=== PATIENT | female | born 1980 | race African-American/Black ===

== ENCOUNTER 2017-03-14 15:23 | Emergency (ER) | payer BC, OTHER ==
[~2017-03-14] VITALS: Ht 170.2 cm; Wt 81.7 kg
[2017-03-14 16:17] LABS: ABSOLUTE NEUTROPHILS 5.4 thou/uL (1.4-8.2); BASOPHILS 0.6 % (0.0-2.0); EOSINOPHILS 0.5 % (0.0-3.0); HEMATOCRIT 40.2 % (37.0-47.0); HEMOGLOBIN 13.6 gm/dL (12.0-15.0); LYMPHOCYTES 26.8 % (24.0-44.0); MANUAL DIFF NO; MCH 25.2 pg (26.0-34.0); MCHC 33.9 g/dL (28.0-37.0); MCV 74.4 fL (80.0-100.0); MONOCYTES 5.2 % (1.0-8.0); PLATELET COUNT 237 thou/uL (150-400); POLYS 66.9 % (36.0-66.0); RBC 5.41 mil/uL (4.20-5.00); RDW 14.5 % (10.5-14.5)
[2017-03-14 16:20] LABS: CALCIUM 8.7 mg/dL (8.5-10.1); CREATININE 1.1 mg/dL (0.6-1.0); POTASSIUM 3.5 mmol/L (3.5-5.1)
[2017-03-14 16:24] LABS: ALBUMIN 3.7 g/dL (3.4-5.0); TOTAL BILIRUBIN 0.4 mg/dL (<0.1-1.0); TOTAL PROTEIN 7.1 g/dL (6.4-8.2)
[2017-03-14 16:39] LABS: URINE BILIRUBIN NEGATIVE (Negative); URINE BLOOD NEGATIVE (Negative); URINE COLOR YELLOW; URINE GLUCOSE-RANDOM* NEGATIVE (Negative); URINE KETONES NEGATIVE (Negative); URINE NITRITE NEGATIVE (Negative); URINE PROTEIN (DIPSTICK) TRACE (Negative)
[2017-03-14] MEDS ORDERED: NASONEX17 GM NASAL (18:20)
[2017-03-14] MEDS ORDERED: NORFLEX100 MG PO (18:20)
[2017-03-14 18:55] VITALS: BP 131/67
== END 2017-03-14 18:56 | disposition home or self-care (01) ==
LOC: ER 15:23
PROVIDERS: Nurse Practitioner Family
DX: G44.209 Tension-type headache, unspecified, not intractable (principal); J32.8 Other chronic sinusitis; Z90.710 Acquired absence of both cervix and uterus; F10.99 Alcohol use, unspecified with unspecified alcohol-induced disorder; F12.10 Cannabis abuse, uncomplicated

== ENCOUNTER → 2018-05-21 | Outpatient (CLI) | payer BC, OTHER ==
[~2018-05-21] MED LIST: NASONEX17 GM NASAL; NORFLEX100 MG PO
== END ==
LOC: RAD 04:27
DX: Z12.31 Encounter for screening mammogram for malignant neoplasm of breast (principal)

== ENCOUNTER → 2021-09-21 | Outpatient (CLI) | payer BC, OTHER | LOC: RAD 15:51 | PROVIDERS: ATTEND Family Medicine | DX: Z12.31 Encounter for screening mammogram for malignant neoplasm of breast (principal); N64.89 Other specified disorders of breast ==